=== PATIENT | female | born 1990 | race Caucasian/White ===

== ENCOUNTER → 2019-11-02 | Outpatient (CLI) | payer BC ==
[~2019-11-02] MED LIST: EFFEXOR 75M75 MG/TAB PO; IMPLANON68 MG; LORTAB 5/500 501 TAB PO; LORTAB ELIX0.5 MG/ML PO; NAPROSYN500 MG PO; PERCOCET 325 MG1 TA2; PERCOCET 325 MG1 TA2 PO; PREDNISONE20 MG PO; PREVACID 15MG15 M1 PO; PROMETHAZINE12.5 M5 PO; ROBAXIN 50500 MG/TAB PO; RT ADVAIR 228 DISKUS IH; SINGULAIR 110 MG/TAB PO; TUSS PO; ULTRAM 50MG TAB50 MG PO; VENTOLIN0.09 MG IH; XANAX 0.5MG0.5 MG PO; ZYRTEC-D 5 MG-11 TER PO; [UNRECOGNIZED DRUG - OTHER]
== END ==
LOC: COL.RAD 10-31 13:30
DX: O26.842 Uterine size-date discrepancy, second trimester (principal); Z3A.20 20 weeks gestation of pregnancy

== ENCOUNTER 2019-11-13 19:42 | Observation (INO) | payer BC ==
[~2019-11-13] VITALS: Ht 154.9 cm; Wt 64.5 kg
[2019-11-13 20:15] LABS: COLLECTION METHOD CLEAN CATCH
[2019-11-13 20:23] LABS: BUDDING YEAST Present /hpf; PH 6 (5-8); URINE APPEARANCE Cloudy; URINE BACTERIA Rare /hpf; URINE BILIRUBIN Negative (NEGATIVE); URINE BLOOD Negative (NEGATIVE); URINE COLOR Yellow; URINE GLUCOSE Negative (NEGATIVE); URINE KETONE Negative (NEGATIVE); URINE LEUKOCYTE ESTERASE 3+ (NEGATIVE); URINE NITRATE Negative (NEGATIVE); URINE PROTEIN(semi-quant) 1+ (NEGATIVE); URINE RBC >50 /hpf; URINE UROBILINOGEN Negative (NEGATIVE)
[2019-11-13 20:38] LABS: BASO # 0.1 (0.0-0.2); BASO % 0.4 % (0.0-2.0); EOS # 0.2 (0.0-0.7); EOS % 0.8 % (0-4.0); GRAN # 16.2 (1.4-6.5); GRAN % 83.5 % (42.2-75.2); HEMOGLOBIN 10.1 g/dl (12.5-16.0); LYMPH # 1.8 (1.2-3.4); LYMPH % 9.2 % (20.0-51.0); MEAN CELL VOLUME 86 fl (80.0-100.0); MEAN CORPUSCULAR HEMOGLOBIN 29 pg (27.0-31.0); MEAN CORPUSCULAR HGB CONC 33 g/dl (33.0-37.0); MONO # 0.9 (0.1-0.6); MONO % 4.7 % (1.7-9.3); PLATELET COUNT 217 K/mm3 (130-400)
[2019-11-13 20:50] LABS: ALBUMIN 3.9 gm/dL (3.5-5.0); BILIRUBIN,TOTAL 0.2 mg/dL (0.0-1.0); C-REACTIVE PROTEIN 1.1 mg/dL (0.0-0.9); CALCIUM 9.3 mg/dL (8.4-10.2); CREATININE, serum 0.5 (0.52-1.25); POTASSIUM 3.6 mmol/L (3.4-5.0); TOTAL PROTEIN 7.3 gm/dL (6.4-8.2)
[2019-11-13 21:12] LABS: HEMATOCRIT 30.2 % (37.0-47.0)
--- NOTE | 2019-11-13 22:40 | NUR ---
Pt wheeled to 222 from ER. Pt ambulatory to bed. Pt states her pain is constant right flank dull pain that radiates to her right lower abdomen. Pt states her pain also occationally has there is a sharp pain as well. VSS stable and assessment completed. Orders received from . FHR Dopplered in the 150sbpm. Plan of care explained to pt. Questions answered. Pt denies needing anything else at this time. Call light within reach.
[2019-11-13 23:00] VITALS: BP 110/57; PULSE 110; TEMP 98.2
[2019-11-14 00:20] VITALS: BP 110/57; PULSE 110; TEMP 98.2
[2019-11-14] MEDS ORDERED: ASPIRIN 81M81 MG/TA2 PO (00:24)
[2019-11-14] MEDS ORDERED: PRILOSEC 20MG20 MG PO (00:24)
[2019-11-14] MEDS ORDERED: VITAMINC1000TA PO (00:25)
[2019-11-14] MEDS ORDERED: PRENATAL MVI PO (00:25)
[2019-11-14 03:00] VITALS: BP 121/62; PULSE 100; TEMP 98.2
[2019-11-14 07:49] LABS: MEAN CELL VOLUME 87 fl (80.0-100.0); MEAN CORPUSCULAR HGB CONC 34 g/dl (33.0-37.0); MEAN PLATELET VOLUME 11.9 fl (7.4-10.4); PLATELET COUNT 179 K/mm3 (130-400); RED BLOOD COUNT 3.21 M/mm3 (4.10-5.30); REDCELL DISTRIBUTION WIDTH-CV 13.2 % (11.5-14.5)
[2019-11-14 08:11] VITALS: BP 128/78; PULSE 92; TEMP 97.2
[2019-11-14 08:15] LABS: HEMATOCRIT 27.8 % (37.0-47.0); HEMOGLOBIN 9.4 g/dl (12.5-16.0); MEAN CORPUSCULAR HEMOGLOBIN 29 pg (27.0-31.0)
[2019-11-14 08:21] LABS: BAND 22 % (0-10); EOSINOPHIL 1 % (0-4); LYMPHOCYTE 14 % (20.0-51.0); NEUTROPHILS 59 % (42.0-75.2); PLATELET ESTIMATE NORMAL (NORMAL)
[2019-11-14 12:41] VITALS: BP 114/68; PULSE 86; TEMP 98.2
--- NOTE | 2019-11-14 13:39 | NUR ---
2143 PATIENT UP AMBULATE IN HALLS TOLERATES WELL
[2019-11-14 16:06] VITALS: BP 98/56; PULSE 72; TEMP 98.2
[2019-11-14 18:40] VITALS: BP 94/45; PULSE 101; TEMP 98.8
--- NOTE | 2019-11-15 02:00 | NUR ---
pt crying, arguing with someone on cell phone.
[2019-11-15 07:34] VITALS: BP 107/58; PULSE 98; TEMP 98.2
[2019-11-15] MEDS ORDERED: CEPHALEXIN500 M1 PO (08:34)
--- NOTE | 2019-11-15 09:20 | NUR ---
Discharge instructions given, pt verbalizes understanding. No further questions. IV removed. Pt to call the [facility] to transfer care.
--- NOTE | 2019-11-15 09:22 | NUR ---
Several visit attempts; Nurse Practitioner Physician Assistant left card with God's blessings and information regarding the availability of spiritual care at our hospital.
== END 2019-11-15 09:35 | disposition home or self-care (01) ==
LOC: COL.ER 19:42 → OB 21:52
PROVIDERS: Nurse Practitioner; ADMIT Obstetrics & Gynecology
DX: O23.02 Infections of kidney in pregnancy, second trimester (principal); O99.512 Diseases of the respiratory system complicating pregnancy, second trimester; J45.909 Unspecified asthma, uncomplicated; O99.612 Diseases of the digestive system complicating pregnancy, second trimester; K21.9 Gastro-esophageal reflux disease without esophagitis; O99.332 Smoking (tobacco) complicating pregnancy, second trimester; F17.200 Nicotine dependence, unspecified, uncomplicated; Z3A.21 21 weeks gestation of pregnancy; Z88.0 Allergy status to penicillin; Z79.82 Long term (current) use of aspirin; Z79.899 Other long term (current) drug therapy; Z80.49 Family history of malignant neoplasm of other genital organs
CPT/HCPCS: J0696; J2270; J7030

== ENCOUNTER → 2020-03-21 | Outpatient (CLI) | payer MEDICAID ==
[~2020-03-21] MED LIST changes: +ASPIRIN 81M81 MG/TA2 PO; +CALCIUM CARBON650 M2 PO; +CEPHALEXIN500 M1 PO; +IBU600 MG PO; +PRENATAL MVI PO; +PRILOSEC 20MG20 MG PO; +SLOW FE142 MG PO; +VITAMINC1000TA PO
== END | disposition still patient (30) ==
LOC: ZCOL.LAB 08:00
DX: Z20.828 Contact with and (suspected) exposure to other viral communicable diseases (principal)

== ENCOUNTER 2020-03-25 19:58 | Inpatient (IN) | payer MEDICAID, OTHER ==
[2020-03-25] VITALS (9 sets, daily range): BP systolic 93–136; BP diastolic 51–83; PULSE 90–121; TEMP 98.1
[~2020-03-25 19:58] MED LIST changes: -CALCIUM CARBON650 M2 PO; -IBU600 MG PO; -SLOW FE142 MG PO
--- NOTE | 2020-03-25 20:05 | NUR ---
PT TO UNIT AMBULATORY WITH FOB FOR CYTOTEC INDUCTION. ORIENTED TO ROOM, CHANGED INTO GOWN , EFM X2 APPLIED, VS OBTAINED, SVE PERFORMED.
[2020-03-25] MEDS ORDERED: SLOW FE142 MG PO (21:16)
[2020-03-25] MEDS ORDERED: CALCIUM CARBON650 M2 PO (21:17)
--- NOTE | 2020-03-25 21:45 | NUR ---
2132- OFF MONITOR TO USE BATHROOM. 6- PT TURNED TO LEFT LATERAL AFTER RETURNING TO BED FROM THE BATHROOM. US TRACING IN THE 90'S, PULSE OXIMETRY TRACING MATERNAL HR IN THE 90'S. US ADJUSTED, FHT'S TRACING IN THE 150'S AFTER APPROXIMATELY 1.5 MINUTES.
--- NOTE | 2020-03-25 22:00 | NUR ---
PT IN LEFT LATERAL DIFFICULTY TRACING FHT'S AND CONTRACTIONS DUE TO POSITION. US AND TOCO ADJUSTED.
--- NOTE | 2020-03-25 22:30 | NUR ---
DIFFICULTY TRACING CONTRACTIONS DUE TO MATERNAL POSITION IN RIGHT LATERAL. TOCO ADJUSTED.
[2020-03-25 22:40] LABS: BASO # 0.1 (0.0-0.2); BASO % 0.4 % (0.0-2.0); EOS # 0.1 (0.0-0.7); EOS % 0.9 % (0-4.0); GRAN % 74.8 % (42.2-75.2); HEMOGLOBIN 12.2 g/dl (12.5-16.0); LYMPH # 2.4 (1.2-3.4); LYMPH % 18.2 % (20.0-51.0); MEAN CELL VOLUME 83 fl (80.0-100.0); MEAN CORPUSCULAR HEMOGLOBIN 27 pg (27.0-31.0); MEAN CORPUSCULAR HGB CONC 33 g/dl (33.0-37.0); MEAN PLATELET VOLUME 11.9 fl (7.4-10.4); MONO # 0.7 (0.1-0.6); MONO % 5.2 % (1.7-9.3); PLATELET COUNT 182 K/mm3 (130-400); RED BLOOD COUNT 4.45 M/mm3 (4.10-5.30); REDCELL DISTRIBUTION WIDTH-CV 18.6 % (11.5-14.5)
--- NOTE | 2020-03-25 23:00 | NUR ---
CONTINUED DIFFICULTY TRACING CONTRACTIONS DUE TO MATERNAL POSITION. PT STATES SHE IS FEELING CONTRACTIONS/TIGHTENING EVERY "COUPLE OF MINUTES".TOCO ADJUSTED. 2246 DECELERATION IN FHT'S FROM BASELINE OF 150 TO 115 THAT RETURNED TO BASELINE AFTER APPROXIMATELY 1.5 MINUTES WITHOUT INTERVENTION.
--- NOTE | 2020-03-25 23:15 | NUR ---
CONTINUE DIFFICULTY TRACING CONTRACTIONS DUE TO MATERNAL POSITION IN RIGHT LATERAL. PT ABLE TO FALL ASLEEP BUT STATES THAT SHE WAS FEELING CONTRACTIONS EVERY 2-3 MINUTES PRIOR TO THAT. TOCO ADJUSTED. 2307- DECELERATION TO FHT'S FROM BASELINE OF 150 TO 90'S RETURNING TO BASELINE AFTER APPROXIMATELY 1 MINUTE.
--- NOTE | 2020-03-25 23:45 | NUR ---
DIFFICULTY TRACING CONTRACTIONS DUE TO MATERNAL POSITION, TOCO ADJUSTED.
[2020-03-26] VITALS (47 sets, daily range): BP systolic 104–161; BP diastolic 54–107; PULSE 77–111; TEMP 97.6–98.7
--- NOTE | 2020-03-26 02:20 | NUR ---
PT REQUEST EPIDURAL PLACEMENT AT THIS TIME. WILL NOTIFY ANESTHESIA ABOUT REQUEST.
--- NOTE | 2020-03-26 03:19 | NUR ---
8- Buffy LIU CRNA IN ROOM FOR EPIDURAL PLACEMENT. PT SITTING UP AT BEDSIDE FOR PLACEMENT. BP CUFF SET TO EVERY 5 MINUTES, PULSE OX ON. 310- TEST DOSE PLACED BY Buffy LIU CRNA. PT TOLERATED WELL. 318- PT REPOSITIONED TO SEMIFOWLERS FOLLOWING EPDIURAL PLACEMENT. MATERNAL HR TRACING FROM .
--- NOTE | 2020-03-26 08:20 | NUR ---
0820- Dr. Maharaj at bedside. Reviewed FHR strip and contraction pattern. Discussing plan of care for AROM, patient agrees and denies questions. 0825- SVE per provider . AROM by Dr. Maharaj for large amount of clear fluid. Physician remains at bedside periodically performing SVEs to ensure head descending on cervix. 0831- Patient repositioned RL and pericare given. Updated on plan of care. Physician leaves bedside but remains on unit. 0836- Variable deceleration noted to 60 bpm. Patient repositioned LL, SVE by this RN unchanged. Physician on unit and notified. 0838- Variable deceleration noted to 90 bpm. Patient repositioned RL and pitocin infusion discontinued at this time. Physician notified by this RN and requested to view strip, remains on unit. Anesthesia provider notified and on unit. 0842- Variable deceleration noted to 70 bpm. SVE by this RN and prolapsed umbilical cord noted upon exam. RN applies upward pressure to vertex to remove pressure from cord. plant attendant at bedside, emergency light pushed for additional assistance. 0844- Reddy Donis CRNA notified of need for emergent section by Any Mckeon RN. 0845- Dr. Maharaj notified of need for emergent section by Any Hyatt RN. i&c technician opening in OR. 0846- Patient transferred to OR with this RN on bed holding continuous upward pressure to vertex. Nursery RN to bedside. See intraoperative documentation.
[2020-03-27 04:10] VITALS: BP 116/74; PULSE 95; TEMP 98.4
[2020-03-27 08:35] VITALS: BP 131/80; PULSE 99; TEMP 97.4
--- NOTE | 2020-03-27 09:41 | NUR ---
Initial visit attempt; Family resting, Gauger Chief Delivery left card of congratulations for the of their daughter and information regarding the availability of spiritual care at our hospital.
[2020-03-27 16:06] VITALS: BP 118/64; PULSE 78; TEMP 98.2
[2020-03-27 21:00] VITALS: BP 124/81; PULSE 107; TEMP 99
[2020-03-28 08:00] VITALS: BP 130/85; PULSE 96; TEMP 98.5
[2020-03-28] MEDS ORDERED: IBU600 MG PO (08:58)
[2020-03-28] MEDS ORDERED: PERCOCET 325 MG1 TA2 PO (08:59)
[2020-03-28 16:56] VITALS: BP 123/80; PULSE 98; TEMP 98
[2020-03-28 19:30] VITALS: BP 127/76; PULSE 101; TEMP 97.6
[2020-03-29 09:00] VITALS: BP 112/75; PULSE 97; TEMP 97.9
--- NOTE | 2020-03-29 09:00 | NUR ---
Ambulates to the bathroom and back. Assessment done. 904 Ibuprofen 600 mg, percocet 5/325 mg two given per request and as ordered.
--- NOTE | 2020-03-29 10:00 | NUR ---
Ambulates in the hallway with baby and spouse.
== END 2020-03-29 11:10 | disposition home or self-care (01) | DRG 788 ==
LOC: OB 19:58 → LDR 19:58 → OB 03-26 10:15
PROVIDERS: ADMIT Obstetrics & Gynecology
PROC: 10D00Z1 Extraction of Products of Conception, Low, Open Approach (ICD-10-PCS; principal; 2020-03-28)
DX: O48.0 Post-term pregnancy (principal); Z3A.40 40 weeks gestation of pregnancy; Z37.0 Single live birth; O99.02 Anemia complicating childbirth; O99.334 Smoking (tobacco) complicating childbirth
CPT/HCPCS: J0330; J0690; J1200; J1885; J2250; J2405; J2590; J2704; J3010; J7120

== ENCOUNTER 2021-10-08 10:10 | Emergency (ER) | payer MEDICAID ==
[~2021-10-08] VITALS: Ht 157.5 cm; Wt 61.4 kg
[~2021-10-08 10:10] MED LIST changes: +CALCIUM CARBON650 M2 PO; +IBU600 MG PO; +SLOW FE142 MG PO
[2021-10-08 12:05] VITALS: BP 112/72; PULSE 81; TEMP 98.5
== END 2021-10-08 12:05 | disposition home or self-care (01) ==
LOC: COL.ER 10:10
DX: G43.909 Migraine, unspecified, not intractable, without status migrainosus (principal); F17.210 Nicotine dependence, cigarettes, uncomplicated; Z28.310 Unvaccinated for COVID-19
CPT/HCPCS: J0780; J1200; J1885; J7030

== ENCOUNTER → 2021-10-28 | Outpatient (CLI) | payer MEDICAID | LOC: COL.RAD 06:46 | DX: R61 Generalized hyperhidrosis (principal) | CPT/HCPCS: Q9967 ==

== ENCOUNTER 2023-04-06 09:46 | Emergency (ER) | payer BC ==
[~2023-04-06] VITALS: Ht 157.5 cm; Wt 65.0 kg
[2023-04-06 10:02] VITALS: TEMP 98.1
[2023-04-06] MEDS ORDERED: WELLBUTRIN XL300 M1 PO (10:02)
[2023-04-06] MEDS ORDERED: ZOLOFT 50MG50 MG PO (10:02)
[2023-04-06] MEDS ORDERED: LR 1,000 ML IV ONE (10:30)
[2023-04-06] MEDS ORDERED: droPERidol 2.5 MG/ML 2 ML VIAL IV ONE (10:45)
[2023-04-06 10:56] LABS: BASO # 0.1 K/mm3 (0.0-0.2); BASO % 0.4 % (0.0-2.0); EOS % 0.1 % (0.0-4.0); GRAN # 14.1 K/mm3 (1.4-6.5); HEMATOCRIT 43.3 % (37.0-47.0); HEMOGLOBIN 14.8 g/dl (12.5-16.0); LYMPH % 11.9 % (20.0-51.0); MEAN CELL VOLUME 83 fl (80.0-100.0); MEAN CORPUSCULAR HEMOGLOBIN 28 pg (27-31); MEAN CORPUSCULAR HGB CONC 34 g/dl (33.0-37.0); MEAN PLATELET VOLUME 10.3 fl (7.4-10.4); MONO # 0.7 K/mm3 (0.1-0.6); MONO % 4.1 % (1.7-9.3); PLATELET COUNT 324 K/mm3 (130-400); RED BLOOD COUNT 5.24 M/mm3 (4.10-5.30); REDCELL DISTRIBUTION WIDTH-CV 12.9 % (11.5-14.5)
[2023-04-06 11:07] VITALS: BP 118/83
[2023-04-06 11:18] LABS: BILIRUBIN,TOTAL 0.6 mg/dL (0.2-1.2); CREATININE, serum 0.95 mg/dL (0.57-1.11); POTASSIUM 4.2 mmol/L (3.5-4.5); TOTAL PROTEIN 7.7 gm/dL (6.2-8.1)
[2023-04-06] MEDS ORDERED: ZOFRAN ODT4 MG PO (11:56)
[2023-04-06 12:34] VITALS: PULSE 62
== END 2023-04-06 12:34 | disposition home or self-care (01) ==
LOC: COL.ER 09:46
PROVIDERS: Emergency Medicine
DX: R11.2 Nausea with vomiting, unspecified (principal); D72.829 Elevated white blood cell count, unspecified
CPT/HCPCS: J1790; J7120